=== PATIENT | female | born 1960 | race Caucasian/White ===

== ENCOUNTER → 2018-02-20 | Outpatient (CLI) | payer OTHER | END | disposition home or self-care (01) | LOC: MAMMO 13:50 | DX: Z12.39 Encounter for other screening for malignant neoplasm of breast (principal) ==

== ENCOUNTER → 2019-03-11 | Outpatient (CLI) | payer OTHER ==
[~2019-03-11] MED LIST: ALENDRONATE SOD70 M1 PO; ARIPIPRAZOLE30 MG PO; ATARAX,VISTARIL10 MG PO; BUPROPION HCL150 M1 PO; Carafate1 GM/10 ML PO; DEPAKOTE ER250 MG PO; EFFEXOR XR150 M1 PO; LITHIUM CARBON150 MG PO; MULTIVITAMINS1 EAC1 PO; PRAZOSIN HCL2 MG PO; PROTONIX40 MG PO; PROVENTIL HFA6.7 GM INH; TRAZODONE100 MG PO
== END | disposition home or self-care (01) ==
LOC: RAD 13:30
DX: M81.8 Other osteoporosis without current pathological fracture (principal); N95.9 Unspecified menopausal and perimenopausal disorder

== ENCOUNTER 2019-03-26 10:57 | Inpatient (IN) | payer OTHER ==
[~2019-03-26] VITALS: Ht 160 cm; Wt 58.2 kg
--- NOTE | ~2019-03-26 | EKG ---
[place], [place] ELECTROCARDIOGRAM REPORT NAME: ROBSON SEVILLA UNIT #: [id number] ROOM: 408 DOCTOR: ROCIO DRAFT REPORT BIRTHDATE: [birth year] [facility] Test Date: 2019-03-26 Test Time: 11:45:48 Pat Name: ROBSON SEVILLA Department: Room: 408 Gender: F Dance Critic: Paige Rowell : 1960 Requested By: MAYA RODRIGUEZ Order Number: [id number] Reading MD: Jose Ayon MD Measurements Intervals [place] Rate: 96 P: 81 MO: 134 QRS: 57 QRSD: 88 T: 69 QT: 329 QTc: 416 Interpretive Statements Sinus rhythm Atrial premature complex Baseline wander in lead(s) V6 No previous ECG available for comparison Electronically Signed On 03-27-2019 9:11:54 PDT by Jose Ayon MD CM:EKGRPT:ELECTROCARDIOGRAM REPORT [id number] MAYA BURGOS DRAFT REPORT MAYA RODRIGUEZ DO
--- NOTE | ~2019-03-26 | O ---
[place], [place] OPERATIVE NOTE NAME: ROBSON SEVILLA UNIT #: [id number] ROOM: 408 DOCTOR: KVNG STEWART MD BIRTHDATE: [birth year] DOS: 03/27/2019 GASTROENDOSCOPIC REPORT HISTORY OF PRESENT ILLNESS: A 59-year-old who has presented with an epigastric abdominal pain, pain radiating to the back, quite distressed. The patient was scheduled previously to be seen as outpatient. The patient had to come to Emergency Room, panel of blood work was done and no acute pathology was identified on the laboratory workup. CT scan of the abdomen was done. Nonspecific prominence of second or third portion of the duodenum reported. PROCEDURE: Today's procedure part of investigation is panendoscopy plus biopsy. PREMEDICATION: Propofol. SCOPE: Olympus forward-viewing gastroscope Q10 video. REPORT: After putting the patient in left lateral position and application of lubricant to the scope, the scope was introduced. Thereafter, under direct visualization, advanced through the length of esophagus without difficulty into gastric pouch. Small hiatal hernia was noticed. Gastric pouch was addressed. Gastritis seen as we approached to duodenal bulb and second part of the duodenum. There is a deep giant ulceration, which harvest food debris in its depth and compromising and duodenal patency. This meticulously was addressed with distant margin of which was biopsied. Photographic series obtained. Air was suctioned out. The patient was extubated, tolerated the procedure well. 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 PLAN AND DISCUSSION: Aggressive ulcer therapy, awaiting biopsy results and orders have been given. Liquid diet, clinical reassessment. Thank you very much indeed. [place], [place] OPERATIVE NOTE NAME: ROBSON SEVILLA UNIT #: [id number] ROOM: 408 DOCTOR: KVNG TSEWART MD BIRTHDATE: [birth year] KVNG STEWART MD CM:OPRECORD:OPERATIVE NOTE 05 42 KVNG STEWART MD 04/01/19 0802 interface
--- NOTE | ~2019-03-26 | CON ---
[place], [place] REPORT OF CONSULTATION NAME: ROBSON SEVILLA UNIT #: [id number] ROOM: 408 DOCTOR: KVNG STEWART MD BIRTHDATE: [birth year] DOS: 03/27/2019 GASTROINTESTINAL CONSULTATION HISTORY OF PRESENT ILLNESS: The patient has presented with abdominal pain, radiating to the back. White blood cell was 14, H and H of 12 and 37. Comprehensive metabolic panel, alkaline phosphatase was elevated to 126 and lipase was within normal limits. Chest x-ray, no acute pathology. CT scan of the abdomen and pelvis, nonspecific wall prominence in the second proximal portion of the duodenum was reported. Urine culture was negative. PAST MEDICAL HISTORY: Osteoporosis, seizure, PTSD, depression, COPD. PAST SURGICAL HISTORY: Appendectomy. SOCIAL HISTORY: Passive smoker. Nonalcohol consumer. FAMILY HISTORY: Noncontributory. ALLERGIES: No known medication. MEDICATIONS: Medication list has been reviewed. The patient on medication. REVIEW OF SYSTEMS: HEENT: Denies double vision, blurred vision. RESPIRATORY: Denies shortness of breath. CARDIOVASCULAR: Denies chest pain. DIGESTIVE SYSTEM: As identified above, nausea, epigastric distress, radiation of pain to the back. PHYSICAL EXAMINATION: VITAL SIGNS: Stable. HEENT: Head normocephalic, nontraumatic. Mouth and buccal mucosa benign. NECK: Supple, no thyromegaly, no cervical lymphadenopathy. CHEST: Symmetric anatomy, equal expansion. No wheeze, no rhonchi. HEART: Normal sinus rhythm, no gallop, no murmur. ABDOMEN: Soft. No hepato-organomegaly. EXTREMITIES: No cyanosis, no pedal edema. NEUROLOGICAL: Alert, oriented to time, place, person. IMPRESSION: Ruling out peptic ulcer disease, ruling out duodenal carcinoma, which is rare occasion. PLAN AND DISCUSSION: Endoscopic assessment . OTHER ADJUNCTIVE DIAGNOSES: As outlined above. Labs reviewed, records reviewed. X-rays reviewed. [place], [place] REPORT OF CONSULTATION NAME: ROBSON SEVILLA UNIT #: [id number] ROOM: 408 DOCTOR: KVNG STEWART MD BIRTHDATE: [birth year] KVNG STEWART MD CM:CONSTR:REPORT OF CONSULTATION 05 03/27/192050 interface
[2019-03-26 11:00] VITALS: BP 129/80
[2019-03-26 11:41] LABS: BASO # 0.1 10*3/uL (0.0-0.1); BASO % 0.6 % (0.0-1.0); EOS # 0.1 10*3/uL (0.0-0.4); EOS % 0.9 % (1.0-4.0); HEMATOCRIT 37.8 % (37.0-47.0); HEMOGLOBIN 12.1 g/dl (12.0-16.0); LYMPH % 13.6 % (27.0-41.0); MEAN CELL VOLUME 86.1 fl (81.0-99.0); MEAN CORPUSCULAR HGB 27.6 pg (27.0-31.0); MEAN PLATELET VOLUME 8.1 fl (9.6-12.3); MONO # 1.3 10*3/uL (0.1-1.0); MONO % 9.2 % (3.0-9.0); NEUT # 10.8 10*3/uL (2.3-7.9); NEUT % 75.1 % (47.0-73.0); PLATELET COUNT AUTOMATED 614 10*3/uL (130-400); RED BLOOD COUNT 4.39 10*6/uL (4.10-5.10); WHITE BLOOD COUNT 14.3 10*3/uL (4.8-10.8)
[2019-03-26 11:51] LABS: ACT PARTIAL THROMBO TIME 28.7 SECONDS (20.0-32.1)
[2019-03-26 11:57] LABS: ALBUMIN 2.7 gm/dl (3.1-4.5); ALKALINE PHOSPHATASE 126 U/L (45-117); BUN 4 mg/dl (7-24); CHLORIDE 101 mmol/L (98-107); CREATININE 0.67 mg/dL (0.55-1.02); LIPASE 59 U/L (73-393); POTASSIUM 3.4 mmol/L (3.5-5.1); SGOT/AST 18 IU/L (3-35); SGPT/ALT 20 U/L (12-78); SODIUM 136 mmol/L (136-145); TOTAL PROTEIN 7.1 gm/dL (6.4-8.2)
[2019-03-26 12:00] LABS: TROPONIN I < 0.015 ng/ml (<0.045)
[2019-03-26 12:02] LABS: BILIRUBIN NEGATIVE (NEGATIVE); BLOOD NEGATIVE (NEGATIVE); CLARITY SL CLOUDY (CLEAR); COLOR YELLOW (YELLOW); GLUCOSE NEGATIVE (NEGATIVE); KETONE TRACE (NEGATIVE); LEUKO ESTERASE TRACE (NEGATIVE); NITRITE NEGATIVE (NEGATIVE); PH 6.5 (5.0-9.0); SPECIFIC GRAVITY 1.015 (1.005-1.030)
[2019-03-26 12:13] LABS: BACTERIA 1+; CALCIUM OXALATE CRYSTALS 1+; MUCOUS 1+
[2019-03-26] MEDS ORDERED: PRAZOSIN HCL2 MG PO (12:51)
[2019-03-26] MEDS ORDERED: BUPROPION HCL150 M1 PO (12:52)
[2019-03-26] MEDS ORDERED: EFFEXOR XR150 M1 PO (12:53)
[2019-03-26] MEDS ORDERED: ARIPIPRAZOLE30 MG PO (12:56)
[2019-03-26] MEDS ORDERED: ALENDRONATE SOD70 M1 PO (12:57)
[2019-03-26] MEDS ORDERED: LITHIUM CARBON150 MG PO (12:57)
[2019-03-26] MEDS ORDERED: MULTIVITAMINS1 EAC1 PO (12:58)
[2019-03-26 13:40] VITALS: BP 114/82
[2019-03-26 15:52] VITALS: BP 104/74
[2019-03-26 17:39] VITALS: BP 125/80
--- NOTE | 2019-03-26 17:39 | NUR ---
PT MEDICATED PER EMAR FOR PAIN. CONT PULSE OX IN PLACE. IV FLUIDS INFUSING WITHOUT DIFFICULTY PER EMAR.
--- NOTE | 2019-03-26 18:01 | NUR ---
Pt stated that the meeication helped with her pain and nausea, stated that she has no pain and no nausea.
[2019-03-26 19:37] VITALS: BP 109/68
--- NOTE | 2019-03-26 19:37 | NUR ---
A 59, admitted to 4E, under the services of MINH Lutz DO with a diagnosis of UTI,SEPSIS,GASRITIS. Chief complaint is ABDOMINAL PAIN.. Patient arrived via bed from ER. Monitor applied. Initial assessment completed. Vital signs taken and recorded. MINH LUTZ DO notified of admission to the unit. Orders received. See assessment for past medical history, medications and allergies. Patient to unit. Clothing/patient valuable form completed. YOLANDA HIGH
[2019-03-26] MEDS ORDERED: DEPAKOTE ER250 MG PO (19:55)
[2019-03-26] MEDS ORDERED: TRAZODONE100 MG PO (19:56)
[2019-03-26] MEDS ORDERED: ATARAX,VISTARIL10 MG PO (19:57)
[2019-03-26] MEDS ORDERED: PROVENTIL HFA6.7 GM INH (19:59)
--- NOTE | 2019-03-26 20:43 | NUR ---
INFORMED THAT HOME MEDS ARE VERIFIED
[2019-03-26 20:49] VITALS: BP 109/68
--- NOTE | 2019-03-26 21:09 | NUR ---
INFROMED OF CONSULT. [facility] EGD FOR 03/27
--- NOTE | 2019-03-26 22:00 | NUR ---
CONSENT OBTAINED FOR EGD. NO OBJECTION TO BLOOD TRANSFUSION IF NEEDED.
--- NOTE | 2019-03-26 22:49 | NUR ---
PATIENT MEDICATED WITH NORCO FOR C/O 04/29 ABDOMEN PAIN. WILL MONITOR
--- NOTE | 2019-03-26 23:49 | NUR ---
NORCO APPEARS EFFECTIVE. PATIENT RESTING QUIETLY IN BED, EYES CLOSED. NO DISTRESS NOTED.
[2019-03-27] VITALS (9 sets, daily range): BP systolic 80–127; BP diastolic 50–66
--- NOTE | 2019-03-27 01:00 | NUR ---
PATIENT RESTING QUIETLY IN BED, EYES CLOSED. NO DISTRESS NOTED. CALL LIGHT WITHIN REACH
--- NOTE | 2019-03-27 03:54 | NUR ---
PATIENT MEDICATED WITH MORPHINE FOR C/O ABDOMEN PAIN 05/30. WILL MONITOR
--- NOTE | 2019-03-27 04:54 | NUR ---
MORPHINE EFFECTIVE FOR PAIN
[2019-03-27 06:21] LABS: BASO # 0.2 10*3/uL (0.0-0.1); BASO % 1.2 % (0.0-1.0); EOS # 0.4 10*3/uL (0.0-0.4); EOS % 3.1 % (1.0-4.0); HEMATOCRIT 37.1 % (37.0-47.0); HEMOGLOBIN 11.7 g/dl (12.0-16.0); LYMPH # 4.5 10*3/uL (1.3-4.4); LYMPH % 36.4 % (27.0-41.0); MEAN CELL VOLUME 88.8 fl (81.0-99.0); MEAN CORPUSCULAR HGB CONC 31.5 g/dl (33.0-37.0); MEAN PLATELET VOLUME 8.4 fl (9.6-12.3); MONO # 1.1 10*3/uL (0.1-1.0); MONO % 9.2 % (3.0-9.0); NEUT # 6.2 10*3/uL (2.3-7.9); NEUT % 49.7 % (47.0-73.0); PLATELET COUNT AUTOMATED 653 10*3/uL (130-400); RED BLOOD COUNT 4.18 10*6/uL (4.10-5.10); RED CELL DISTRI WIDTH 13.1 % (0-14.5); WHITE BLOOD COUNT 12.4 10*3/uL (4.8-10.8)
[2019-03-27 06:33] LABS: BUN 4 mg/dl (7-24); CHLORIDE 108 mmol/L (98-107); CHOLESTEROL 139 mg/dL (<200); CREATININE 0.58 mg/dL (0.55-1.02); POTASSIUM 3.8 mmol/L (3.5-5.1); SODIUM 142 mmol/L (136-145)
[2019-03-27 06:42] LABS: HDL CHOLESTEROL 54 mg/dl (40-60); LDL CHOLESTEROL 63 mg/dL (9-159); TRIGLYCERIDES 112 mg/dl (<150); VALPROIC ACID (DEPAKENE) 4.8 ug/ml (50-100); VLDL CHOLESTEROL 22 mg/dL (6-40)
[2019-03-27 06:52] LABS: ACT PARTIAL THROMBO TIME 28.8 SECONDS (20.0-32.1)
[2019-03-27 07:40] LABS: VITAMIN D, 25-HYDROXY 19.7 ng/mL (30-100)
--- NOTE | 2019-03-27 08:43 | NUR ---
Shift chart check completed.
--- NOTE | 2019-03-27 11:30 | NUR ---
Financial Investigator in to talk to patient. Patient states lives at HOME with ALONE. There are 5 steps in the home. Physician: ANDERS Pharmacy: [facility] Home health services: NONE Patient's level of ADLs: INDEPENDENT Patient has working utilities: YES DME: NONE Follow-up physician's appointment after d/c: WILL BE MADE BY HOSPITALIST NURSE DIRECTOR ON DISCHARGE Does patient want to access PORTAL?: NO Discharge plan PT STATES SHE LIVES ALONE AND IS INDEPENDENT IN HER CARE. STATES SHE PLANS TO GO HOME AFTER DISCHARGE AND HAS NO NEEDS. WILL CONTINUE TO FOLLOW. STATES SHE WILL HAVE A RIDE HOME ON DC.. PRADEEP KENNEDY
--- NOTE | 2019-03-27 16:55 | NUR ---
PT IN SURGERY FOR EGD WITH DR. STEWART
--- NOTE | 2019-03-27 19:05 | NUR ---
BEDSIDE REPORT OBTAINED FROM AARTI-MILLER. PATIENT IS AWAKE AND ALERT, VOICED NO COMPLAINTS, STATES "I FEEL MUCH BETTER". NO DISTRESS NOTED, RESP ARE ERND ON ROOM AIR. BED IS LOCKED IN LOWEST POSITION. CALL LIGHT WITHIN REACH.
--- NOTE | 2019-03-27 19:08 | NUR ---
DR. STEWART WANTED A MAGIC CUP ORDERED FOR PATIENT, SPOKE TO DIETARY, WE DO NOT HAVE MAGIC CUP AVAILABLE
--- NOTE | 2019-03-27 23:56 | NUR ---
PATIENT MEDICATED WITH NORCO FOR C/O 6/10 BACK PAIN. WILL MONITOR
[2019-03-28] VITALS: BP 93/51
[2019-03-28 08:00] VITALS: BP 111/62
--- NOTE | 2019-03-28 10:49 | NUR ---
NORCO FOR STOMACH/BACK DISCOMFORTS
[2019-03-28 12:00] VITALS: BP 111/62
--- NOTE | 2019-03-28 14:47 | NUR ---
SITTING UP AT BEDSIDE
--- NOTE | 2019-03-28 15:23 | NUR ---
Shift chart check completed.24 HR chart check completed.
[2019-03-28 16:00] VITALS: BP 108/63
--- NOTE | 2019-03-28 16:29 | NUR ---
ON ASSESSMENT PATIENT IS RESTING EASILY IN BED, WATCHING TV. NO VOICED COMPLAINTS OF PAIN OR SOB. ON QUESTIONING IT'S BEEN "ABOUT A WEEK" SINCE LAST BOWEL MOVEMENT. SHE DECLINED WANTING ANYTHING AT THIS TIME. ADVISED THERE ARE MEDS AVAILABLE (PRN'S) SHOULD SHE WANT THEM. SEE ALL APPROPRIATE INTERVENTIONS.
--- NOTE | 2019-03-28 18:28 | NUR ---
IV INFILTRATED LEFT ARM AND D/C. NEW IV SITE OBTAINED RT ARM ON SECOND ATTEMPT.
--- NOTE | 2019-03-28 19:00 | NUR ---
BEDSIDE REPORT OBTAINED FROM MICAH. PATIENT IS AWAKE AND ALERT, VOICED NO COMPLAINTS, FAMILY AT BEDSIDE. NO DISTRESS NOTED, RESP ARE ERND ON ROOM AIR. BED IS LOCKED IN LOWET POSITION. CALL LIGHT WITHIN REACH
--- NOTE | 2019-03-28 19:43 | NUR ---
PATIENT MEDICATED NORCO FOR COMPLAINTS OF 6/10 BACK PAIN. WILL MONITOR
[2019-03-28 20:00] VITALS: BP 105/56
--- NOTE | 2019-03-28 20:43 | NUR ---
NORCO EFFECTIVE FOR BACK PAIN
--- NOTE | 2019-03-28 21:30 | NUR ---
PATIENT GIVEN ENSURE FOR HS PER ORDERS.
[2019-03-29] VITALS: BP 91/58
--- NOTE | 2019-03-29 01:00 | NUR ---
PATIENT IN BED COMFORTABLY, EYES CLOSED. NO DISTRESS NOTED. CALL LIGHT WITHIN REACH
[2019-03-29 05:50] LABS: BUN 5 mg/dl (7-24); CHLORIDE 110 mmol/L (98-107); CREATININE 0.59 mg/dL (0.55-1.02); POTASSIUM 3.8 mmol/L (3.5-5.1); SODIUM 144 mmol/L (136-145)
[2019-03-29 06:15] LABS: BASO # 0.1 10*3/uL (0.0-0.1); BASO % 1.2 % (0.0-1.0); EOS # 0.6 10*3/uL (0.0-0.4); EOS % 6.9 % (1.0-4.0); LYMPH # 2.6 10*3/uL (1.3-4.4); MEAN CELL VOLUME 87.9 fl (81.0-99.0); MEAN CORPUSCULAR HGB 27.5 pg (27.0-31.0); MEAN CORPUSCULAR HGB CONC 31.3 g/dl (33.0-37.0); MEAN PLATELET VOLUME 8.3 fl (9.6-12.3); MONO # 1.1 10*3/uL (0.1-1.0); MONO % 12.3 % (3.0-9.0); NEUT # 4.5 10*3/uL (2.3-7.9); NEUT % 50.3 % (47.0-73.0); PLATELET COUNT AUTOMATED 575 10*3/uL (130-400); RED BLOOD COUNT 3.64 10*6/uL (4.10-5.10); RED CELL DISTRI WIDTH 13.1 % (0-14.5)
--- NOTE | 2019-03-29 07:46 | NUR ---
24 HR chart check completed.
[2019-03-29 08:00] VITALS: BP 115/59
--- NOTE | 2019-03-29 09:00 | NUR ---
SITTING AT BEDSIDE. NO ACUTE DISTRESS NOTED. RESPIRATIONS EASY. LUNGS DIMINISHED WITH EXP WHEEZES. PULSE OX 95% RA. CLAIMS INFREQUENT NON-PROD COUGH. ABD SOFT WITH HYPO BS. DENIES N/V/D. C/O NO BM, DULCOLAX PROVIDED. CALL LIGHT WITHIN REACH
--- NOTE | 2019-03-29 09:30 | NUR ---
DR PARKER PRESENT ON FLOOR TO ASSESS PATIENT AND DISCUSS PLAN OF CARE
[2019-03-29 12:00] VITALS: BP 109/63
--- NOTE | 2019-03-29 15:04 | NUR ---
AMBULATING HALLWAY WITH SISTER
[2019-03-29 16:00] VITALS: BP 109/63
--- NOTE | 2019-03-29 19:55 | NUR ---
PT REQUESTED AND RECIEVED PRN ORDER FOR NORCO FOR C/O BACK PAIN THAT SHE RATES A 5/10. WILL MONITOR & REASSESS FOR EFFECTIVENESS OF MEDICATION.
[2019-03-29 20:00] VITALS: BP 123/61
--- NOTE | 2019-03-29 21:00 | NUR ---
NORCO EFFECTIVE. PT SLEEPING WITH NO OBVIOUS SIGNS/SYMPTOMS OF PAIN OR DISCOMFORT. WILL CONTINUE TO MONITOR.
[2019-03-30] VITALS: BP 124/77
[2019-03-30 08:00] VITALS: BP 102/66
[2019-03-30 08:05] LABS: BASO # 0.1 10*3/uL (0.0-0.1); BASO % 1.4 % (0.0-1.0); EOS # 0.5 10*3/uL (0.0-0.4); EOS % 5.5 % (1.0-4.0); HEMATOCRIT 32.8 % (37.0-47.0); HEMOGLOBIN 10.1 g/dl (12.0-16.0); LYMPH # 2.4 10*3/uL (1.3-4.4); LYMPH % 28.7 % (27.0-41.0); MEAN CORPUSCULAR HGB 26.8 pg (27.0-31.0); MEAN CORPUSCULAR HGB CONC 30.8 g/dl (33.0-37.0); MEAN PLATELET VOLUME 8.1 fl (9.6-12.3); MONO # 1.1 10*3/uL (0.1-1.0); MONO % 12.5 % (3.0-9.0); NEUT # 4.3 10*3/uL (2.3-7.9); NEUT % 51.5 % (47.0-73.0); PLATELET COUNT AUTOMATED 566 10*3/uL (130-400); RED BLOOD COUNT 3.77 10*6/uL (4.10-5.10); RED CELL DISTRI WIDTH 13.2 % (0-14.5); WHITE BLOOD COUNT 8.4 10*3/uL (4.8-10.8)
[2019-03-30 08:29] LABS: BUN 4 mg/dl (7-24); CHLORIDE 109 mmol/L (98-107); CREATININE 0.69 mg/dL (0.55-1.02); POTASSIUM 3.6 mmol/L (3.5-5.1); SODIUM 145 mmol/L (136-145)
--- NOTE | 2019-03-30 09:38 | NUR ---
TRIED CALLING PATIENT'S PHARMACY TO VERIFY MEDICATIONS, BUSY TONE. WILL KEEP TRYING.
[2019-03-30 12:00] VITALS: BP 112/67
--- NOTE | 2019-03-30 14:29 | NUR ---
PT CONTINUES TO DENY NEEDS ON DISCHARGE. WILL CONTINUE TO FOLLOW.
[2019-03-30 16:00] VITALS: BP 113/67
[2019-03-30 20:00] VITALS: BP 108/64
--- NOTE | 2019-03-30 20:38 | NUR ---
JOSE MARIA REQUESTED AND RECIEVED FOR COMPLAINTS OF RIGHT SIDED BACK PAIN SHE RATES 5/10. WILL MONITOR FOR EFFECTIVENESS OF MED.
[2019-03-31] VITALS: BP 91/41
--- NOTE | 2019-03-31 04:09 | NUR ---
PT REQUESTED AND RECIEVED PRN ORDER FOR JORDAN FOR COMPLAINTS OF A MIGRAINE HEADACHE. WILL MONITOR FOR EFFECTIVENESS OF MEDICATION.
--- NOTE | 2019-03-31 05:30 | NUR ---
NORCO EFFECTIVE PER PT
[2019-03-31 08:00] VITALS: BP 112/65
--- NOTE | 2019-03-31 08:00 | NUR ---
Patient resting quietly with no c/o discomfort. Respirations easy and regular. Vital signs stable. No overt distress. DONAVAN HASSAN R
--- NOTE | 2019-03-31 11:59 | NUR ---
PT CONTINUES TO DENY NEEDS AT HOME ON DISCHARGE.
[2019-03-31 12:00] VITALS: BP 96/51
[2019-03-31] MEDS ORDERED: PROTONIX40 MG PO (13:38)
[2019-03-31] MEDS ORDERED: Carafate1 GM/10 ML PO (13:38)
--- NOTE | 2019-03-31 14:27 | NUR ---
Discharge instructions reviewed with patient/family. Patient receptive and verbalizes understanding. Follow-up care arranged. Written instructions given to patient/family. DONAVAN HASSAN
== END 2019-03-31 14:27 | disposition home or self-care (01) | DRG 383 ==
LOC: ED 10:57 → 4E 17:27 → EDHOLD 17:27 → 4E 18:28
PROVIDERS: Emergency Medicine; Internal Medicine; Internal Medicine Gastroenterology; ADMIT Internal Medicine
PROC: 0DB98ZX Excision of Duodenum, Via Natural or Artificial Opening Endoscopic, Diagnostic (ICD-10-PCS; principal; 2019-03-27)
DX: K26.9 Duodenal ulcer, unspecified as acute or chronic, without hemorrhage or perforation (principal); E43 Unspecified severe protein-calorie malnutrition; E87.1 Hypo-osmolality and hyponatremia; N39.0 Urinary tract infection, site not specified; K29.00 Acute gastritis without bleeding; D64.9 Anemia, unspecified; D47.3 Essential (hemorrhagic) thrombocythemia; K44.9 Diaphragmatic hernia without obstruction or gangrene; E83.41 Hypermagnesemia; E87.8 Other disorders of electrolyte and fluid balance, not elsewhere classified; K80.20 Calculus of gallbladder without cholecystitis without obstruction; G43.909 Migraine, unspecified, not intractable, without status migrainosus; F43.10 Post-traumatic stress disorder, unspecified; J44.9 Chronic obstructive pulmonary disease, unspecified; F32.9 Major depressive disorder, single episode, unspecified; M81.0 Age-related osteoporosis without current pathological fracture; Z90.49 Acquired absence of other specified parts of digestive tract; Z87.891 Personal history of nicotine dependence; Z80.8 Family history of malignant neoplasm of other organs or systems; Z79.899 Other long term (current) drug therapy; Z68.22 Body mass index [BMI] 22.0-22.9, adult

== ENCOUNTER → 2020-03-16 | Outpatient (CLI) | payer OTHER | END | disposition home or self-care (01) | LOC: MRI 01-21 10:00 | DX: I67.82 Cerebral ischemia (principal); G31.84 Mild cognitive impairment of uncertain or unknown etiology ==

== ENCOUNTER 2021-05-22 16:38 | Emergency (ER) | payer OTHER ==
[~2021-05-22] VITALS: Ht 160 cm; Wt 73.5 kg
[2021-05-22] MEDS ORDERED: PERCOCET 5-3251 EACH PO (18:41)
== END 2021-05-22 19:07 | disposition home or self-care (01) ==
LOC: ED 16:38
DX: S49.92XA Unspecified injury of left shoulder and upper arm, initial encounter (principal); Z79.899 Other long term (current) drug therapy; Z90.49 Acquired absence of other specified parts of digestive tract; Z87.891 Personal history of nicotine dependence; W19.XXXA Unspecified fall, initial encounter; Y93.89 Activity, other specified; Y92.89 Other specified places as the place of occurrence of the external cause; Y99.8 Other external cause status

== ENCOUNTER → 2023-02-25 | Outpatient (CLI) | payer OTHER ==
[~2023-02-25] MED LIST changes: +PERCOCET 5-3251 EACH PO
== END ==
LOC: MAMMO 02-11 10:30
PROVIDERS: ATTEND Nurse Practitioner Family
DX: Z12.31 Encounter for screening mammogram for malignant neoplasm of breast (principal)

== ENCOUNTER 2023-09-07 12:58 | Emergency (ER) | payer OTHER ==
[~2023-09-07] VITALS: Ht 162.5 cm; Wt 59.0 kg
[2023-09-07] MEDS ORDERED: HYDROCODONE-AC1 EAC1 PO (17:19)
== END 2023-09-07 17:57 | disposition home or self-care (01) ==
LOC: ED 12:58
DX: S52.92XA Unspecified fracture of left forearm, initial encounter for closed fracture (principal); S52.602A Unspecified fracture of lower end of left ulna, initial encounter for closed fracture; S20.212A Contusion of left front wall of thorax, initial encounter; S49.91XA Unspecified injury of right shoulder and upper arm, initial encounter; J44.9 Chronic obstructive pulmonary disease, unspecified; F32.A Depression, unspecified; G43.909 Migraine, unspecified, not intractable, without status migrainosus; M81.0 Age-related osteoporosis without current pathological fracture; Z79.899 Other long term (current) drug therapy; Z90.49 Acquired absence of other specified parts of digestive tract; Z87.891 Personal history of nicotine dependence; W10.8XXA Fall (on) (from) other stairs and steps, initial encounter; Y93.89 Activity, other specified; Y92.89 Other specified places as the place of occurrence of the external cause; Y99.8 Other external cause status

== ENCOUNTER → 2023-09-30 | Outpatient (CLI) | payer OTHER ==
[~2023-09-30] MED LIST changes: +HYDROCODONE-AC1 EAC1 PO
== END | disposition home or self-care (01) ==
LOC: ORTHO 01:23
PROVIDERS: ATTEND Orthopaedic Surgery
DX: S52.532D Colles' fracture of left radius, subsequent encounter for closed fracture with routine healing (principal); S52.602D Unspecified fracture of lower end of left ulna, subsequent encounter for closed fracture with routine healing; X58.XXXD Exposure to other specified factors, subsequent encounter

== ENCOUNTER → 2023-10-23 | Outpatient (CLI) | payer OTHER | END | disposition home or self-care (01) | LOC: ORTHO 10:09 | PROVIDERS: ATTEND Orthopaedic Surgery | DX: S52.532D Colles' fracture of left radius, subsequent encounter for closed fracture with routine healing (principal); X58.XXXD Exposure to other specified factors, subsequent encounter ==

== ENCOUNTER → 2023-11-29 | Outpatient (CLI) | payer OTHER | END | disposition home or self-care (01) | LOC: RAD 01:18 | PROVIDERS: ATTEND Internal Medicine | DX: M81.0 Age-related osteoporosis without current pathological fracture (principal) ==